=== PATIENT | male | born 1950 | race African-American/Black ===

== ENCOUNTER → 2016-09-04 | Outpatient (CLI) | payer BC ==
[~2016-09-04] MED LIST: ASPI81TA28 PO; MULT-506 PO
--- NOTE | 2016-09-04 12:36 | DIAGNOSTIC IMAGING REPORT ---
LEFT ELBOW MIN 3 VIEWS CLINICAL HISTORY: Left elbow injury. Follow-up fracture. COMPARISON: Left elbow radiographs August 11, 2016. FINDINGS: Alignment of left elbow is anatomic anatomic. There is no change in alignment of the nondisplaced radial neck fracture. Joint effusion has decreased in size. Partial interval healing is noted. IMPRESSION: Partial interval healing of the nondisplaced left radial neck fracture. No change in alignment. Decrease in size of the left elbow joint effusion. Electronically signed by: Mike Wood M.D. 09/04/2016 12:34 PM Dictated Date/Time: 09/04/2016 12:32 PM
== END | disposition home or self-care (01) ==
LOC: C.RDSM 12:31
PROVIDERS: ATTEND Physical Medicine & Rehabilitation Sports Medicine
DX: S59.909A Unspecified injury of unspecified elbow, initial encounter (principal); X58.XXXA Exposure to other specified factors, initial encounter

== ENCOUNTER 2016-12-12 22:06 | Emergency (ER) | payer BC ==
[~2016-12-12] VITALS: Ht 175.3 cm; Wt 84.5 kg
[2016-12-12 22:09] VITALS: BP 134/82; PULSE 64; TEMP 36.5; O2SAT 98; Ht 175.3 cm; Wt 84.5 kg
[2016-12-12] MEDS ORDERED: DOXYCYCLINE HYCLATE 100 MG CAP PO ONE (22:30)
--- NOTE | 2016-12-12 22:33 | EMERGENCY ROOM VISIT NOTE ---
History Report prepared by Ramila: Carlotta Temple Under the Supervision of: Dr. Zheng Short M.D. First contact with patient: 22:13 Chief Complaint: BITE Stated Complaint: TICK BITE ON BACK History of Present Illness The patient is a 66 year old male who presents to the Emergency Room with complaints of a sudden tick bite that was noticed 2 hours ago, around 2029. The patient states that he took two walks today, one this morning and one around 1700. The patient states that he went to the gym then took a shower around 2029 , which is when he noticed the tick. He asked his friend to remove the tick and she managed to get the whole thing out. The patient's tetanus shot is up to date. Source of History: patient Onset: 2 hours ago, around 2029. Position: back Quality: other (tick bite) Timing: other (sudden) Review of Systems See HPI for pertinent positives & negatives. A total of 6 systems reviewed and were otherwise negative. Past Medical & Surgical Medical Problems: (1) No Known Active Medical Problems Family History Diabetes mellitus Social History Smoking Status: Never Smoker Alcohol Use: none Marital Status: single Occupation Status: employed Current/Historical Medications Scheduled Aspirin (Aspirin Ec), 81 MG PO DAILY Multivitamin (Multivitamin), 1 TAB PO DAILY Allergies Coded Allergies: No Known Allergies (Unverified , nka, 12/12/16) Physical Exam Vital Signs Date Time Temp Pulse Resp B/P Pulse Ox O2 Delivery O2 Flow Rate FiO2 12/12/16 22:09 36.5 64 18 134/82 98 Room Air Physical Exam GENERAL: Sitting on the stretcher, no distress. NEURO: Awake, alert, oriented x3, no focal or motor deficits. SKIN: Small 0.5 cm area of erythema to the left thoracic back with a central area consistent with an insect bite, no cellulitis. Medical Decision & Procedures Medications Administered Medications (Trade) Dose Ordered Sig/Tyrell Route Start Time Stop Time Status Last Admin Dose Admin Doxycycline Hyclate (Vibramycin Cap) 200 mg ONE ONCE PO 12/12/16 22:30 12/12/16 22:31 DC 12/12/16 22:24 200 MG ED Course 2215: The patient was evaluated in room C6. A complete history and physical exam was performed. 2225: Discussed results and discharge instructions: he verbalized understanding and agreement. The patient is ready for discharge. 2230: Ordered Doxycycline Hyclate 200 mg PO Medical Decision Differential diagnoses considered include cellulitis, insect sting, tick bite. The patient presents with a tick bite to the left posterior thoracic area. There was no cellulitis. I did look at the tick and I actually think it may be too big to be a deer tick but I could not be 100% certain. The tick had been removed fairly quickly when noted. The tick was not full of blood. The patient 's tetanus was current. The patient was given 200 mg of oral doxycycline to hopefully prevent Lyme disease. He will follow with his doctor's office for a Lyme test in 4-6 weeks. The patient was encouraged to return for rash or flulike symptoms. Impression Primary Impression: Tick bite Scribe Attestation The scribe's documentation has been prepared under my direction and personally reviewed by me in its entirety. I confirm that the note above accurately reflects all work, treatment, procedures, and medical decision making performed by me. Departure Information Dispostion Home / Self-Care Referrals Rommel Hallman M.D. (PCP) Forms HOME CARE DOCUMENTATION FORM, IMPORTANT VISIT INFORMATION Patient Instructions My [facility] Additional Instructions see you doctor for a lyme test in 4-6 weeks return to the ER or see your doctor for any bulls-eye rash or flu like symptoms Problem Qualifiers Primary Impression: Tick bite Encounter type: initial encounter Qualified Codes: W57.XXXA - Bitten or stung by nonvenomous insect and other nonvenomous arthropods, initial encounter
[2016-12-12] MEDS ORDERED: MULT-506 PO (22:42)
[2016-12-12] MEDS ORDERED: ASPI81TA28 PO (22:42)
== END 2016-12-12 22:54 | disposition home or self-care (01) ==
LOC: C.EDB 22:07 → C.EDC 22:54
DX: S20.362A Insect bite (nonvenomous) of left front wall of thorax, initial encounter (principal); W57.XXXA Bitten or stung by nonvenomous insect and other nonvenomous arthropods, initial encounter; Z83.3 Family history of diabetes mellitus; Z79.82 Long term (current) use of aspirin; Z79.899 Other long term (current) drug therapy

== ENCOUNTER → 2017-03-11 | Outpatient (CLI) | payer BC ==
[2017-03-11 14:13] LABS: CHOLESTEROL/HDL RATIO 3.4
[2017-03-11 14:36] LABS: LYME DISEASE AB IGG NEG (NEG)
[2017-03-11 14:54] LABS: LYME DISEASE AB IGM POS (NEG)
[2017-03-18 10:06] LABS: 18KDIGG BAND NONREACTIVE (NONREACTIVE); 23KDIGG BAND NONREACTIVE (NONREACTIVE); 23KDIGM BAND REACTIVE (NONREACTIVE); 28KDIGG BAND NONREACTIVE (NONREACTIVE); 30KDIGG BAND NONREACTIVE (NONREACTIVE); 39KDIGG BAND NONREACTIVE (NONREACTIVE); 39KDIGM BAND NONREACTIVE (NONREACTIVE); 41KDIGG BAND NONREACTIVE (NONREACTIVE); 41KDIGM BAND NONREACTIVE (NONREACTIVE); 45KDIGG BAND NONREACTIVE (NONREACTIVE); 58KDIGG BAND NONREACTIVE (NONREACTIVE); 66KDIGG BAND NONREACTIVE (NONREACTIVE); 93KDIGG BAND NONREACTIVE (NONREACTIVE)
== END | disposition home or self-care (01) ==
LOC: C.LABBC 10:23
PROVIDERS: ATTEND Internal Medicine
DX: E78.1 Pure hyperglyceridemia (principal); T14.8 Other injury of unspecified body region; W57.XXXA Bitten or stung by nonvenomous insect and other nonvenomous arthropods, initial encounter

== ENCOUNTER → 2017-08-19 | Outpatient (CLI) | payer BC, OTHER ==
[~2017-08-19] MED LIST changes: +DEXT30TA7 PO; +RANI150T3 PO; +TAMS0.4C38 PO
== END | disposition home or self-care (01) ==
LOC: C.LABBC 10:14
PROVIDERS: ATTEND Urology
DX: T14.8XXA Other injury of unspecified body region, initial encounter (principal); W57.XXXA Bitten or stung by nonvenomous insect and other nonvenomous arthropods, initial encounter; R97.20 Elevated prostate specific antigen [PSA]

== ENCOUNTER → 2017-09-03 | Outpatient (CLI) | payer OTHER ==
[~2017-09-03] MED LIST changes: -DEXT30TA7 PO; -RANI150T3 PO; -TAMS0.4C38 PO
== END | disposition home or self-care (01) ==
LOC: C.LAB 16:59
PROVIDERS: ATTEND Nurse Practitioner Adult Health
DX: R32 Unspecified urinary incontinence (principal); R35.0 Frequency of micturition

== ENCOUNTER 2017-12-29 01:27 | Emergency (ER) | payer OTHER ==
[~2017-12-29] VITALS: Ht 175.3 cm; Wt 79.2 kg
[2017-12-29 01:30] VITALS: TEMP 36.7; Ht 175.3 cm; Wt 79.2 kg
--- NOTE | 2017-12-29 01:47 | EMERGENCY ROOM VISIT NOTE ---
History Report prepared by Ramila: Rayshawn Giraldo Under the Supervision of: Dr. Tariq Santana M.D. First contact with patient: 01:35 Chief Complaint: URINARY SYMPTOMS Stated Complaint: LIGHT BLOOD IN URINE History of Present Illness The patient is a 67 year old male who presents to the Emergency Room with complaints of worsening blood in his urine beginning an hour ago. The patient states he was going to bed and need to use the restroom. He reports his urine had a pink tint to it. The patient notes he also developed fuzzy vision. He states his urine is now red when he produced the sample in the department. The patient reports he had a kidney 6-7 years ago, and he experienced similar symptoms. He notes he also has a history of glaucoma, occasionally drinks alcohol, and takes Zantac daily. The patient denies flank pain, urinary burning , taking blood thinners, bruises, recent injury, passing large clots, feeling like he needs to urinate, rashes, leg swelling, and being exposed to chemicals. He also denies a history of easy bleeding, abdominal surgeries, liver problems, diabetes, hypertension, and high cholesterol. Source of History: patient Onset: an hour ago Quality: other (blood in urine) Timing: worsening Associated Symptoms: No rash Note: Associated symptoms: fuzzy vision Denies: flank pain, urinary burning, bruises, recent injury, passing large clots , feeling like he needs to urinate, leg swelling Review of Systems See HPI for pertinent positives & negatives. A total of 10 systems reviewed and were otherwise negative. Past Medical & Surgical Medical Problems: (1) Glaucoma Family History Diabetes mellitus Social History Smoking Status: Never Smoker Alcohol Use: none Marital Status: single Occupation Status: employed Current/Historical Medications Scheduled Aspirin (Aspirin Ec), 81 MG PO DAILY Multivitamin (Multivitamin), 1 TAB PO DAILY Ranitidine Hcl (Zantac), 150 MG PO DAILY Tamsulosin Hcl (Flomax), 0.4 MG PO DAILY Scheduled PRN Dextromethorphan-Guaifenesin (Mucinex Dm), 1 TAB PO Q12 PRN for Cough Allergies Coded Allergies: No Known Allergies (Unverified , nka, 12/29/17) Physical Exam Vital Signs Date Time Temp Pulse Resp B/P (MAP) Pulse Ox O2 Delivery O2 Flow Rate FiO2 12/29/17 04:20 60 16 119/73 97 Room Air 5/16/18 03:32 68 18 141/85 96 Room Air 12/29/17 01:30 36.7 73 18 153/83 98 Room Air Physical Exam GENERAL: Patient is well appearing and in no acute distress. EYES: No scleral icterus, unremarkable pupils. ENT: Mucous membranes moist, no nasal congestion. NECK: No masses appreciated, no meningismus, trachea is midline. RESPIRATORY: No dyspnea. Clear to auscultation and equal bilaterally. No wheeze , no rhonchi. CARDIOVASCULAR: Regular rate and rhythm. No murmurs, rubs, gallops appreciated. GASTROINTESTINAL: Abdomen soft, nontender, no peritonitis. Bowel sounds positive. No masses appreciated. BACK: No midline tenderness, no CVA tenderness EXTREMITIES: Normal motion all extremities, no cyanosis, no edema. NEUROLOGIC: Alert and oriented, no acute motor or sensory deficits, no focal weakness, cranial nerves grossly intact. SKIN: No rash, no jaundice, no diaphoresis. Medical Decision & Procedures ER Provider Diagnostic Interpretation: Stat Rad Radiology results and stated below per my review and radiologist interpretation: US RENAL: The right kidney measures 12.6 cm and the left kidney measures 11.7 cm. No hydronephrosis. 7 mm hyperechoic focus in the left ureterovesical junction region may represent stone. Correlate with clinical findings and lab values such as left flank pain and hematuria. Debris within the bladder lumen, correlate for cystitis. Bilateral ureteral jets noted. Radiologist: Kai Rooney M.D. Laboratory Results 12/29/17 01:45 Red Blood Count 4.85, Mean Corpuscular Volume 89.1, Mean Corpuscular Hemoglobin 30.3, Mean Corpuscular Hemoglobin Concent 34.0, Mean Platelet Volume 9.0, Neutrophils (%) (Auto) 61.2, Lymphocytes (%) (Auto) 28.3, Monocytes (%) (Auto) 8.7, Eosinophils (%) (Auto) 1.3, Basophils (%) (Auto) 0.3, Neutrophils # (Auto) 5.87, Lymphocytes # (Auto) 2.71, Monocytes # (Auto) 0.83, Eosinophils # (Auto) 0.12, Basophils # (Auto) 0.03 12/29/17 01:45 Test 12/29/17 01:45 White Blood Count 9.58 K/uL (4.8-10.8) Red Blood Count 4.85 M/uL (4.7-6.1) Hemoglobin 14.7 g/dL (14.0-18.0) Hematocrit 43.2 % (42-52) Mean Corpuscular Volume 89.1 fL (80-100) Mean Corpuscular Hemoglobin 30.3 pg (25-34) Mean Corpuscular Hemoglobin Concent 34.0 g/dl (32-36) Platelet Count 359 K/uL (130-400) Mean Platelet Volume 9.0 fL (7.4-10.4) Neutrophils (%) (Auto) 61.2 % Lymphocytes (%) (Auto) 28.3 % Monocytes (%) (Auto) 8.7 % Eosinophils (%) (Auto) 1.3 % Basophils (%) (Auto) 0.3 % Neutrophils # (Auto) 5.87 K/uL (1.4-6.5) Lymphocytes # (Auto) 2.71 K/uL (1.2-3.4) Monocytes # (Auto) 0.83 K/uL (0.11-0.59) Eosinophils # (Auto) 0.12 K/uL (0-0.5) Basophils # (Auto) 0.03 K/uL (0-0.2) RDW Standard Deviation 42.4 fL (36.4-46.3) RDW Coefficient of Variation 13.0 % (11.5-14.5) Immature Granulocyte % (Auto) 0.2 % Immature Granulocyte # (Auto) 0.02 K/uL (0.00-0.02) Prothrombin Time 10.7 SECONDS (9.0-12.0) Prothromb Time International Ratio 1.0 (0.9-1.1) Activated Partial Thromboplast Time 26.1 SECONDS (21.0-31.0) Partial Thromboplastin Ratio 1.0 Urine Color BROWN Urine Appearance TURBID (CLEAR) Urine pH 5.0 (4.5-7.5) Urine Specific [place] 1.032 (1.000-1.030) Urine Protein 1+ (NEG) Urine Glucose (UA) NEG (NEG) Urine Ketones TRACE (NEG) Urine Occult Blood 3+ (NEG) Urine Nitrite NEG (NEG) Urine Bilirubin NEG (NEG) Urine Urobilinogen NEG (NEG) Urine Leukocyte Esterase NEG (NEG) Urine WBC (Auto) 10-30 /hpf (0-5) Urine RBC (Auto) >30 /hpf (0-4) Urine Hyaline Casts (Auto) 1-5 /lpf (0-5) Urine Epithelial Cells (Auto) 10-20 /lpf (0-5) Urine Bacteria (Auto) NEG (NEG) Anion Gap 1.0 mmol/L (3-11) Est Creatinine Clear Calc Drug Dose 76.9 ml/min Estimated GFR () 98.7 Estimated GFR (Non- 85.2 BUN/Creatinine Ratio 19.4 (10-20) Calcium Level 9.0 mg/dl (8.5-10.1) Laboratory results as reviewed by me. Medications Administered Medications (Trade) Dose Ordered Sig/Tyrell Route Start Time Stop Time Status Last Admin Dose Admin Tamsulosin HCl (Flomax Cap) 0.4 mg NOW ONCE PO 12/29/17 04:30 12/29/17 04:31 DC 12/29/17 04:30 0.4 MG Oxycodone HCl (Roxicodone Immediate Rel 5MG Home Pack) 1 homepack UD ONCE PO 12/29/17 04:30 12/29/17 04:31 DC 12/29/17 04:30 1 HOMEPACK ED Course 0141: The patient was evaluated in room A02. A complete history and physical exam was performed. 0251: I reevaluated the patient. He is feeling fine. I updated him of current test results. 0418: Reevaluated the patient. He feels good and urinated with no further blood. He notes he did have mild left discomfort earlier. He notes he will follow up with is PCP for a repeat evaluation. I discussed giving the patient Oxy/IR to go home with in the event he developed pain. He agreed. We discusses the risks and management of the medication. Discussed results and discharge instructions: he verbalized understanding and agreement. The patient is ready for discharge. Medical Decision 67 yr old male arrives for evaluation of hematuria. No distress and otherwise feeling well. Did eventually admit some vague left flank discomfort earlier. Labs look good with normal HgB, Plts, Cr, and INR. UA with blood but no bacteria. US with evidence distal left stone without hydro. Suspect stone moved some, causing bleeding and is now just sitting there. Without UTI symptoms nor olive in urine I do not feel that we need to start abx at this time. Stone does not appear to be causing hydro, though if it moves further he may start developing pain thus to go Oxy IR given for this is pain develops, however RTED if persistent pain, fevers, vomiting or other concerns. Patient will follow up with PCP for further evaluation. Of note Urine already clearing at time of discharge. Medication Reconcilliation Current Medication List: was personally reviewed by me Blood Pressure Screening Patient's blood pressure: Elevated blood pressure Blood pressure disposition: Elevated BP felt to be situational Impression Primary Impression: Left ureteral calculus Additional Impression: Hematuria Scribe Attestation The scribe's documentation has been prepared under my direction and personally reviewed by me in its entirety. I confirm that the note above accurately reflects all work, treatment, procedures, and medical decision making performed by me. Departure Information Dispostion Home / Self-Care Prescriptions Tamsulosin Hcl (FLOMAX) 0.4 Mg Cap 0.4 MG PO DAILY, #5 CAP Prov: Tariq Santana M.D. 12/29/17 Referrals Kaiden Garcia M.D. (PCP) Forms HOME CARE DOCUMENTATION FORM, IMPORTANT VISIT INFORMATION Patient Instructions My [facility] Additional Instructions There is a small stone (7mm) in the left distal ureter. Keep well hydrated. Follow up with your primary care provider for further evaluation and repeat testing. Return if fevers, increasing pain, vomiting, passing out or other concerns. You have received a narcotic pain medication. These medications may cause drowsiness and should not be used with other sedative medications. Do not drive , drink alcohol, perform dangerous activities, nor make important decisions after taking these medications. long term care social worker use or inappropriate use may lead to addiction. Problem Qualifiers
[2017-12-29 02:08] LABS: BASO % 0.3 %; BASO ABS # 0.03 K/uL (0-0.2); EOS % 1.3 %; EOS ABS # 0.12 K/uL (0-0.5); HEMATOCRIT 43.2 % (42-52); HEMOGLOBIN 14.7 g/dL (14.0-18.0); IG# 0.02 K/uL (0.00-0.02); LYMPH % 28.3 %; LYMPH ABS # 2.71 K/uL (1.2-3.4); MEAN CELL VOLUME 89.1 fL (80-100); MEAN CORPUSCULAR HEMOGLOBIN 30.3 pg (25-34); MONO % 8.7 %; MONO ABS # 0.83 K/uL (0.11-0.59); NEUT % 61.2 %; NEUT ABS # 5.87 K/uL (1.4-6.5); PLATELET COUNT 359 K/uL (130-400); RED CELL DISTRIBUTION WIDTH SD 42.4 fL (36.4-46.3); WHITE BLOOD COUNT 9.58 K/uL (4.8-10.8)
[2017-12-29 02:26] LABS: CREATININE 0.92 mg/dl (0.60-1.40); POTASSIUM 3.8 mmol/L (3.5-5.1)
[2017-12-29 02:28] LABS: PTT PATIENT 26.1 SECONDS (21.0-31.0)
[2017-12-29] MEDS ORDERED: RANI150T3 PO (02:46)
[2017-12-29] MEDS ORDERED: DEXT30TA7 PO (02:47)
[2017-12-29 04:20] VITALS: BP 119/73; PULSE 60; O2SAT 97
[2017-12-29] MEDS ORDERED: TAMS0.4C38 PO (04:23)
[2017-12-29] MEDS ORDERED: TAMSULOSIN HCL 0.4 MG CAP PO ONE (04:30)
[2017-12-29] MEDS ORDERED: OXYCODONE IR HOME PACK PO ONE (04:30)
--- NOTE | 2017-12-29 06:45 | DIAGNOSTIC IMAGING REPORT ---
EXAMINATION: RENAL ULTRASOUND CLINICAL HISTORY: hematuria COMPARISON STUDY: Noncontrast CT scan dated 08/31/2009 FINDINGS: The right kidney measures 12.6 cm. The left kidney measures 11.7 cm. There is no evidence of hydronephrosis. There is a 17 mm right renal parapelvic cyst. There are multiple left renal cysts, the largest of which measures 17 mm. A 14 mm lower pole renal cyst is complex with septations. There is a 4 mm echogenic focus within the upper pole the left kidney suspicious for a calculus. There is a suspected 7 mm nonobstructing calculus within the distal left ureter. The prostate is enlarged. Bilateral ureteral jets are visualized. Urine within the bladder is slightly echogenic. This could be secondary to hyperconcentration or infection. IMPRESSION : 1. Suspected 7 mm calculus within the distal left ureter. No evidence of hydronephrosis 2. 4 mm left renal calculus 3. Bilateral renal cysts. A 14 mm lower pole left renal cyst is complex with septations 4. Mild prostamegaly Electronically signed by: Jorge A Arrieta M.D. 12/29/2017 6:44 AM Dictated Date/Time: 12/29/2017 6:40 AM
== END 2017-12-29 04:30 | disposition home or self-care (01) ==
LOC: C.EDB 01:27 → C.EDA 04:30
DX: N20.1 Calculus of ureter (principal); R31.9 Hematuria, unspecified; Z79.82 Long term (current) use of aspirin; Z79.899 Other long term (current) drug therapy

== ENCOUNTER → 2018-03-03 | Outpatient (CLI) | payer OTHER ==
[~2018-03-03] MED LIST changes: +DEXT30TA7 PO; +RANI150T3 PO
[2018-03-03 13:31] LABS: BASO % 0.3 %; BASO ABS # 0.02 K/uL (0-0.2); EOS % 1.7 %; EOS ABS # 0.13 K/uL (0-0.5); HEMATOCRIT 43.1 % (42-52); HEMOGLOBIN 14.7 g/dL (14.0-18.0); IG# 0.01 K/uL (0.00-0.02); LYMPH % 23.2 %; LYMPH ABS # 1.78 K/uL (1.2-3.4); MEAN CORPUSCULAR HEMOGLOBIN 30.7 pg (25-34); MEAN CORPUSCULAR HGB CONC 34.1 g/dl (32-36); MEAN PLATELET VOLUME 10.1 fL (7.4-10.4); MONO % 6.6 %; MONO ABS # 0.51 K/uL (0.11-0.59); NEUT % 68.1 %; NEUT ABS # 5.23 K/uL (1.4-6.5); PLATELET COUNT 305 K/uL (130-400); RED CELL DISTRIBUTION WIDTH CV 12.9 % (11.5-14.5); RED CELL DISTRIBUTION WIDTH SD 42.2 fL (36.4-46.3); WHITE BLOOD COUNT 7.68 K/uL (4.8-10.8)
[2018-03-03 14:33] LABS: ALBUMIN 3.6 gm/dl (3.4-5.0); ALKALINE PHOSPHATASE 85 U/L (45-117); ALT/SGPT 19 U/L (12-78); AST/SGOT 14 U/L (15-37); BLOOD UREA NITROGEN 14 mg/dl (7-18); CALCIUM 8.9 mg/dl (8.5-10.1); CARBON DIOXIDE 26 mmol/L (21-32); CHOLESTEROL 159 mg/dl (0-200); CREATININE 0.95 mg/dl (0.60-1.40); GLUCOSE 101 mg/dl (70-99); LDL CHOLESTEROL CALCULATED 85 mg/dl; SODIUM 140 mmol/L (136-145); TOTAL PROTEIN 7.5 gm/dl (6.4-8.2)
== END | disposition home or self-care (01) ==
LOC: C.LABBC 09:31
PROVIDERS: ATTEND Physician Assistant Medical
DX: Z00.00 Encounter for general adult medical examination without abnormal findings (principal); E78.1 Pure hyperglyceridemia; N20.0 Calculus of kidney

== ENCOUNTER → 2018-03-15 | Outpatient (CLI) | payer OTHER ==
[~2018-03-15] MED LIST changes: +OPTIRAY 320 IV PRN
--- NOTE | 2018-03-15 08:39 | DIAGNOSTIC IMAGING REPORT ---
CT UROGRAM CLINICAL HISTORY: Hematuria. COMPARISON STUDY: Abdominal CT dated 08/31/2009. TECHNIQUE: Before and following the IV administration of 119 cc of Optiray 320, CT urogram of the abdomen and pelvis is performed from the lung bases to the proximal femora. Images are reviewed in the axial, sagittal, and coronal planes. IV contrast was administered without complication. A dose lowering technique was utilized adhering to the principles of ALARA. CT DOSE: 1201.28 mGycm FINDINGS: Lung bases: The heart is top normal in size and without pericardial effusion. The lung bases are clear. Liver: The contrast-enhanced liver is normal in size, contour, and attenuation. There is no intrahepatic biliary ductal dilatation. The hepatic veins and portal veins are patent. Scattered subcentimeter hepatic hypodensities likely represent cysts but are too small for definitive characterization. Gallbladder: There are numerous calcified gallstones without CT evidence of acute cholecystitis. Spleen: Normal in size and attenuation. Pancreas: Unremarkable. Adrenal glands: Unremarkable. Kidneys and ureters: The contrast enhanced kidneys are normal in size and without hydronephrosis. There is a punctate nonobstructing calculus in the right upper pole. No additional renal calculi are identified on the unenhanced series. The kidneys enhance and excrete symmetrically. Bilateral renal cysts measure up to 2.2 cm. There is no enhancing renal cortical mass lesion identified. There is no evidence of urothelial lesion within the renal pelvis bilaterally or along the course of either ureter. Abdominal vasculature: The abdominal aorta is normal in course and caliber. There are perigastric collateral vessels. Bowel: There is moderate colonic fecal retention. No bowel obstruction is seen. The appendix is normal as visualized. Peritoneum: There is no intraperitoneal free air or abdominal ascites. There is a fat-containing umbilical hernia. Lymphadenopathy: None. Pelvic viscera: The prostate gland is enlarged and heterogeneous, measuring 5.1 cm in transverse diameter. There is median lobe hypertrophy. A 7 mm calculus is present within the bladder lumen. The bladder wall is thickened and trabeculated indicating chronic outlet obstruction. A 3.4 cm lipoma is suggested along the right spermatic cord seen on image #[id number]. Skeletal structures: The skeletal structures are osteopenic. Postlaminectomy change is noted in the lumbar spine. Lumbosacral spondylosis is observed. No lytic or blastic lesions are seen. IMPRESSION: 1. There is a punctate nonobstructing right renal calculus. No additional calculi are identified in either kidney. 2. There is no enhancing renal cortical mass, and no evidence of urothelial lesion within the renal pelvis bilaterally or along the course of the ureters. 3. Prostatomegaly with evidence of chronic bladder outlet obstruction. 4. There is a 7 mm bladder calculus. 5. Cholelithiasis without CT evidence of acute cholecystitis. 6. Moderate colonic fecal retention. 7. Additional findings as above. Electronically signed by: Zheng Wilson M.D. 03/15/2018 8:38 AM Dictated Date/Time: 03/15/2018 8:22 AM
== END | disposition home or self-care (01) ==
LOC: C.CTS 07:45
PROVIDERS: ATTEND Nurse Practitioner Family
DX: N20.0 Calculus of kidney (principal); N21.0 Calculus in bladder; K80.20 Calculus of gallbladder without cholecystitis without obstruction; N40.1 Benign prostatic hyperplasia with lower urinary tract symptoms; R31.9 Hematuria, unspecified; N32.89 Other specified disorders of bladder; N28.89 Other specified disorders of kidney and ureter; K59.00 Constipation, unspecified